=== PATIENT | female | born 2000 | race Caucasian/White ===

== ENCOUNTER 2021-12-22 02:46 | Emergency (ER) | payer MEDICAID ==
[~2021-12-22] VITALS: Ht 165.1 cm; Wt 69.9 kg
[2021-12-22 03:35] VITALS: BP_SYST 116
[2021-12-22] MEDS ORDERED: CEPH-548 PO ×2 (03:36→03:37)
[2021-12-22] MEDS ORDERED: ACETAMINOPHEN 500 MG TABLET PO ONE (03:45)
[2021-12-22] MEDS ORDERED: cephALEXin 500 MG CAPSULE PO ONE (03:45)
[2021-12-22 04:20] VITALS: BP_SYST 116
== END 2021-12-22 04:20 | disposition home or self-care (01) ==
LOC: SED 02:46
DX: N39.0 Urinary tract infection, site not specified (principal)
CPT/HCPCS: 81002; 81025; 99283